=== PATIENT | female | born 1965 | race Caucasian/White ===

== ENCOUNTER 2019-05-16 09:27 | Observation (INO) | payer BC ==
[~2019-05-16] VITALS: Ht 170.2 cm; Wt 96.7 kg
[~2019-05-16 09:27] MED LIST: CIPR500T94 PO
[2019-05-16 09:56] VITALS: BP 153/79
[2019-05-16 10:11] LABS: BASO % 0 % (0-3); EOS # 0.1 x10^3/uL (0.0-0.7); EOS % 1 % (0-3); HEMATOCRIT 40.6 % (36.0-47.0); HEMOGLOBIN 13.6 g/dL (12.0-15.5); LYMPH # 1.6 x10^3/uL (1.0-4.8); LYMPH % 22 % (24-48); MEAN CORPUSCULAR HEMOGLOBIN 31 pg (25-35); MEAN CORPUSCULAR HGB CONC 34 g/dL (31-37); MEAN CORPUSCULAR VOLUME 93 fL (79-100); MONO # 0.4 x10^3/uL (0.0-1.1); MONO % 6 % (0-9); NEUT # 5.3 x10^3uL (1.8-7.7); NEUT % 71 % (31-73); PLATELET COUNT 291 x10^3/uL (140-400); RED BLOOD COUNT 4.37 x10^6/uL (3.50-5.40); RED CELL DISTRIBUTION WIDTH 14.3 % (11.5-14.5); WHITE BLOOD COUNT 7.4 x10^3/uL (4.0-11.0)
[2019-05-16] MEDS ORDERED: ATOR20TA58 PO (10:25)
[2019-05-16] MEDS ORDERED: HYDR12.58 (10:25)
[2019-05-16] MEDS ORDERED: LISI10TA2 PO (10:25)
--- NOTE | 2019-05-16 10:27 | RAD ---
EXAM: PA and Lateral Views of the Chest DATE: 05/16/2019 9:48 AM INDICATION: COMPARISON: No Prior FINDINGS: The heart is not enlarged. Mediastinal and hilar contours are normal. No focal parenchymal airspace opacity. No pleural effusion or pneumothorax. IMPRESSION: 1. No radiographic evidence for acute cardiopulmonary process. Electronically signed by: Terry Lugo MD (05/16/2019 10:25 AM) [facility]
[2019-05-16 10:31] LABS: ALBUMIN 3.7 g/dL (3.4-5.0); ALBUMIN/GLOBULIN RATIO 1.2 (1.0-1.7); CALCIUM 8.9 mg/dL (8.5-10.1); CREATININE 0.8 mg/dL (0.6-1.0); POTASSIUM 3.4 mmol/L (3.5-5.1); TOTAL BILIRUBIN 0.3 mg/dL (0.2-1.0); TOTAL PROTEIN 6.8 g/dL (6.4-8.2)
[2019-05-16 11:12] LABS: BACTERIA,URINE FEW /HPF (0-FEW); BILIRUBIN,URINE NEG (NEG); CLARITY,URINE CLEAR; COLOR,URINE YELLOW; GLUCOSE,URINE NEG (NEG); NITRITE,URINE NEG (NEG); RBC,URINE 0 /HPF (0-2); SQUAMOUS EPITHELIAL CELL,UR FEW /LPF; UROBILINOGEN,URINE 0.2 mg/dL (0.2 mg/dL); WBC,URINE OCC /HPF (0-4)
--- NOTE | 2019-05-16 12:14 | EKG ---
[address] [id number] Test Date: 2019-05-16 Test Time: 10:39:56 Pat Name: JULIANE SOTO Department: Room: 117 A Gender: F Chute Feeder: JORGITO : 1965 Requested By: ALVARO NAJERA Order Number: [id number] Reading MD: Measurements Intervals Darby Rate: 80 P: 97 CT: 160 QRS: 6 QRSD: 78 T: 36 QT: 370 QTc: 430 Interpretive Statements SINUS RHYTHM ATRIAL PREMATURE COMPLEX(ES) R-S TRANSITION ZONE IN V LEADS DISPLACED TO THE LEFT QRS(T) CONTOUR ABNORMALITY CONSIDER ANTEROSEPTAL MYOCARDIAL DAMAGE POSSIBLY ABNORMAL ECG RI6.02 No previous ECG available for comparison
[2019-05-16] MEDS ORDERED: NICOTINE 21MG PATCH. TD SCH (12:30)
[2019-05-16 14:59] VITALS: BP 136/85
[2019-05-16] MEDS ORDERED: POTASSIUM CHLORIDE 20 MEQ TABLET.ER. PO ONE (15:00)
--- NOTE | 2019-05-16 15:29 | CARD ---
MR#: [id number] Date of Study: 05/16/2019 Ordering Physician: ENID BEAL, Referring Physician: ENID BEAL, Tech: Lyla Orr RDCS APPROVED REPORT EXAM: Two-dimensional and M-mode echocardiogram with Doppler and color Doppler. Other Information Quality : Good INDICATION Chest Pain 2D DIMENSIONS RVDd2.6 (2.9-3.5cm)Left Atrium(2D)3.4 (1.6-4.0cm) IVSd1.0 (0.7-1.1cm)Aortic Root(2D)3.0 (2.0-3.7cm) LVDd4.9 (3.9-5.9cm)PWd1.1 (0.7-1.1cm) LVDs3.2 (2.5-4.0cm)FS (%) 34.7 % SV71.4 mlLVEF(%)63.7 (>50%) Aortic Valve AoV Peak Jony.111.6cm/sAoV VTI19.3cm AO Peak GR.5.0mmHgAO Mean GR.3mmHg JOSH (VTI)3.55cm2 Mitral Valve MV E Wdvufybp66.4cm/sMV DECEL [id number] MV A Vlpgrgga92.4cm/sE/A Ratio1.3 Tricuspid Valve TR P. Waubkrhz189dz/sRAP AGTUCXYD1wdWq TR Peak Gr.56mlCcHYTL68sfDt LEFT VENTRICLE The left ventricle is normal size. There is normal left ventricular wall thickness. The left ventricu lar systolic function is normal. The Ejection Fraction is 55-60%. There is normal LV segmental wall m otion. The left ventricular diastolic function and filling is normal for age. RIGHT VENTRICLE The right ventricle is normal size. The right ventricular systolic function is normal. ATRIA The left atrium size is normal. The right atrium size is normal. The interatrial septum is intact wit h no evidence for an atrial septal defect or patent foramen ovale as noted on 2-D or Doppler imaging. AORTIC VALVE The aortic valve is not well visualized but appears to be functioning normally by Doppler interrogati on. Doppler and Color Flow revealed no significant aortic regurgitation. There is no significant aort ic valvular stenosis. MITRAL VALVE The mitral valve is normal in structure and function. There is no evidence of mitral valve prolapse. There is no mitral valve stenosis. Doppler and Color-flow revealed trace to mild mitral regurgitation . TRICUSPID VALVE The tricuspid valve is normal in structure and function. Doppler and Color Flow revealed trace tricus pid regurgitation. The PA pressure was estimated at 29 mmHg. There is no tricuspid valve stenosis. PULMONIC VALVE The pulmonic valve is not well visualized. Doppler and Color Flow revealed no pulmonic valvular regur gitation. There is no pulmonic valvular stenosis. GREAT VESSELS The aortic root is normal in size. The ascending aorta is mildly dilated at 3.4 cm. The IVC is normal in size and collapses >50% with inspiration. PERICARDIAL EFFUSION There is no evidence of significant pericardial effusion. Critical Notification Critical Value: No <Conclusion> The left ventricular systolic function is normal. The Ejection Fraction is 55-60%. There is normal LV segmental wall motion. Trace to mild mitral regurgitation. Trace tricuspid regurgitation. The PA pressure was estimated at 29 mmHg. There is no evidence of significant pericardial effusion. Signed by : Fabrice Garcia, Electronically Approved : 05/16/2019 15:28:46
[2019-05-16 16:40] VITALS: BP 146/85
[2019-05-16] MEDS ORDERED: hydroCHLOROthiazide 12.5 MG CAPSULE PO SCH (21:00)
[2019-05-16] MEDS ORDERED: ATORVASTATIN CALCIUM 20 MG TABLET PO SCH (21:00)
[2019-05-17] MEDS ORDERED: LISINOPRIL 10 MG TABLET PO SCH (09:00)
== END 2019-05-16 16:45 | disposition home or self-care (01) ==
LOC: INTOOBSV 09:27 → UNDOADMOB 09:27 → 1 SOUTH 09:27
PROVIDERS: ADMIT Family Medicine; ATTEND Family Medicine
DX: R07.89 Other chest pain (principal); I10 Essential (primary) hypertension; R06.02 Shortness of breath; R11.0 Nausea; Z72.0 Tobacco use
CPT/HCPCS: 36415; 71046; 80053; 81001; 82550; 83880; 84443; 84484; 85025; 85379; 93005; 93306; G0378; G0379